=== PATIENT | male | born 1990 | race Caucasian/White ===

== ENCOUNTER → 2023-01-18 15:08 | Outpatient (CLI) | payer BC, SELFPAY ==
--- NOTE | 2023-01-18 15:24 | XR_ITS ---
FINAL REPORT TECHNIQUE: Chest PA & Lateral CLINICAL HISTORY: SOB, WHEEZING, CONCERN FOR PNEUMONIA COMPARISON: None FINDINGS: 2 views of the chest were performed. The heart size is normal. The mediastinum is within normal limits. There is no acute cardiopulmonary process. There are no pleural effusions. There is no pneumothorax. The bony thorax appears intact. IMPRESSION: No acute cardiopulmonary process. Reviewed, Interpreted and Dictated by Wolf Antonio MD Transcribed by Debra Davila Authenticated and [facility]
== END ==
PROVIDERS: PCP Nurse Practitioner Family; Visit Provider Nurse Practitioner Family
DX: R06.02 Shortness of breath (principal)
CPT/HCPCS: 71046